=== PATIENT | male | born 1960 | race Caucasian/White ===

== ENCOUNTER 2021-03-09 17:57 | Emergency (ER) | payer OTHER ==
[~2021-03-09] VITALS: Ht 180.3 cm; Wt 71.7 kg
--- NOTE | 2021-03-09 18:01 | NUR ---
BIB [facility] 76 FROM HOME,EPISODE OF CONFUSION PER FAMILY,[id number], BLOOD SUGAR 90. THE PATIENT IS ALERT AND ORIENTED X2. HAS CLEAR SPEECH. DENIES PAIN. IN ROOM AIR AND DENIES SOB. RESPIRATION REGULAR AND UNLABORED. ATTACHED TO THE MONITOR.
--- NOTE | 2021-03-09 18:10 | NUR ---
THE PATIENT IS TAKEN TO CT
[2021-03-09] MEDS ORDERED: IV NS 0.9% 1,000 ML BAG IV ONE (18:30)
--- NOTE | 2021-03-09 18:42 | NUR ---
MOVE SHEET SUBMITTED AND CALLED FOR BED.
--- NOTE | 2021-03-09 18:48 | NUR ---
CALLED [facility] FOR RADIOLOGIST TO CALL US BACK.
--- NOTE | 2021-03-09 18:50 | NUR ---
DR. DELGADO SPEAKING WITH DR. FOURNIER.
--- NOTE | 2021-03-09 19:09 | NUR ---
RICHIE FROM [facility] T[facility] CALL TO GIVE UPDATES ABOUT PATIENT TEL [phone]
[2021-03-09 19:24] LABS: ALANINE AMINOTRANSFERASE 29 U/L (12-78); ALBUMIN 3.8 g/dL (3.4-5.0); ALCOHOL, BLOOD < 3 mg/dL (0-0); ALKALINE PHOSPHATASE 74 U/L (46-116); ASPARTATE AMINOTRANSFERASE 16 U/L (15-37); BILIRUBIN,DIRECT 0.1 mg/dL (0.0-0.2); BILIRUBIN,TOTAL 0.3 mg/dL (0.2-1.0); CALCIUM, SERUM 8.9 mg/dL (8.5-10.1); CARBON DIOXIDE 27 mmol/L (21-32); CHLORIDE 108 mmol/L (98-107); CREATININE 0.8 mg/dL (0.6-1.3); GLUCOSE 101 mg/dL (74-106); POTASSIUM 4.3 mmol/L (3.5-5.1); SODIUM SERUM 145 mmol/L (136-145); TOTAL PROTEIN, SERUM 7.3 g/dL (6.4-8.2); UREA NITROGEN, BLOOD 19 mg/dL (7-18)
[2021-03-09 19:25] LABS: SERUM AMMONIA 21 umol/L (11-32)
[2021-03-09 19:27] LABS: ACETAMINOPHEN < 2 ug/ml (10-30)
--- NOTE | 2021-03-09 19:30 | NUR ---
TOOK OVER PT CARE. PT REMAINS ON MONITOR AND PULSE OX. URINE COLLECTED, SENT TO LAB.
[2021-03-09 19:42] LABS: BASOPHILS % (AUTO) 0.5 % (0.0-2.0); EOSINOPHILS % (AUTO) 1.5 % (0.0-6.0); HEMATOCRIT 41 % (39-51); HEMOGLOBIN 13.7 g/dL (13.5-17.5); LYMPHOCYTES # (AUTO) 2.1 K/uL (0.8-4.8); LYMPHOCYTES % (AUTO) 21.4 % (20.0-44.0); MEAN CORPUSCULAR HGB CONC 34 g/dl (31.0-36.0); MEAN CORPUSCULAR VOLUME 97 fL (80-96); MONOCYTES # (AUTO) 0.9 K/uL (0.1-1.30); MONOCYTES % (AUTO) 8.9 % (2.0-12.0); NEUTROPHILS # (AUTO) 6.6 K/uL (1.8-8.9); NEUTROPHILS % (AUTO) 67.7 % (43.0-81.0); PLATELET COUNT (AUTO) 298 K/uL (150-450); RED BLOOD CELL COUNT(AUTO) 4.18 MIL/uL (4.5-6.0); WHITE BLOOD COUNT (AUTO) 9.8 K/uL (4.3-11.0)
--- NOTE | 2021-03-09 19:47 | NUR ---
DR FOURNIER ON THE PHONE W/ DR JACKSON FROM [facility] [phone]
--- NOTE | 2021-03-09 19:50 | NUR ---
PER DR FOURNIER, PT ACCEPTED TO BE TRANSFERRED TO [facility]
--- NOTE | 2021-03-09 19:53 | NUR ---
CM CÉSAR [phone]
[2021-03-09 20:25] LABS: BILIRUBIN,URINE NEGATIVE (NEGATIVE); COLOR,URINE YELLOW (YELLOW); LEUKOCYTE ESTERASE ,URINE NEGATIVE (NEGATIVE); NITRITE, URINE NEGATIVE (NEGATIVE); PROTEIN,URINE NEGATIVE (NEGATIVE); UGLUCOSE NEGATIVE (NEGATIVE); UROBILINOGEN,URINE 0.2 EU/dL (0.2)
--- NOTE | 2021-03-09 20:28 | NUR ---
UNABLE TO ASSESS PT DUE TO PT BEING A SAMMARINESE SPEAKER. PRIOR NURSE DID ENDORSE THAT THE PT IS [id number] (NAME AND PLACE.)
[2021-03-09 20:32] LABS: THYROID STIMULATING HORMONE 1.602 uIU/mL (0.358-3.74)
--- NOTE | 2021-03-09 20:32 | NUR ---
TRANSFER INFO: PT GOING TO [facility] ROOM 209, ACCEPTED BY DR PATIÑO, RN FOR REPORT [phone], [facility] ETA [phone]
[2021-03-09 20:39] LABS: BACTERIA,URINE None seen /HPF (None Seen); CALCIUM OXALATE CRYSTALS,UR Few /HPF (None Seen); SQUAMOUS EPITHELIAL CELL,UR 0-2 /HPF (None Seen); WBC,URINE 0-2 /HPF (0-3)
[2021-03-09 20:40] LABS: MUCUS,URINE Few /LPF (None Seen)
[2021-03-09 20:58] VITALS: BP 143/85
--- NOTE | 2021-03-09 21:54 | NUR ---
Amanuel yeager in ED - 03/09/21 at 2154 by VAHID REPORT GIVEN TO ROSA MARIA CISNEROS LASHANDA
--- NOTE | 2021-03-09 21:54 | NUR ---
REPORT GIVEN TO ROSA MARIA JACKSON FOR LASHANDA
--- NOTE | 2021-03-09 23:20 | NUR ---
REPORT GIVEN TO EMT, PT TRANSFERED.
== END 2021-03-09 23:59 | disposition short-term general hospital (02) ==
LOC: ER 18:02
DX: G93.40 Encephalopathy, unspecified (principal); R94.31 Abnormal electrocardiogram [ECG] [EKG]; G93.49 Other encephalopathy; Z20.822 Contact with and (suspected) exposure to COVID-19; R94.02 Abnormal brain scan; G93.89 Other specified disorders of brain
CPT/HCPCS: 36415; 70450; 71045; 80048; 80076; 80143; 80307; 80320; 81001; 82140; 82962; 84443; 84484; 85025; 85730; 87081; 87426; 93005; 96360; 99285; C9803; G0480